=== PATIENT | female | born 1980 | race Asian ===

== ENCOUNTER 2016-12-06 18:45 | Emergency (ER) | payer BC ==
[2016-12-06 18:50] VITALS: BP 114/68
[2016-12-06] MEDS ORDERED: predniSONE TAB* 20 MG PO ONE (19:14)
[2016-12-06] MEDS ORDERED: diPHENhydraMINE PO* 50 MG PO ONE (19:14)
--- NOTE | 2016-12-06 20:32 | ED ---
Bebo Olmos Erika, scribed for Bello Collins MD on 12/06/16 at 1921 . Allergic Reaction/Systemic - HPI Summary HPI Summary: Patient is a 36-year-old female presenting to the ED with a CC of possible allergic reaction. Patient reports she started noticing pruritic, erythematous areas diffusely on her neck, chest, and extremities at 14:00 today, worsening more rapidly since arrival to the ED 30 minutes ago. She states onset was after eating lunch, and she reports she ate a new [place] flavoring agent that she has never had before. Patient has not taken any medication since then. She denies allergic reactions in the past. She denies SOB and nausea. Pt states she is breast-feeding. - History of Current Complaint Chief Complaint: EDAllergicReaction Time Seen by Provider: 12/06/16 19:09 Hx Obtained From: Patient, Family/Help Desk Assistant - Onset/Duration: Gradual Onset, Started hours ago, Still Present Timing: Constant Severity Initially: Mild Severity Currently: Moderate Pain Intensity: 0 Pain Scale Used: 0-10 Numeric Location: Diffuse Character: Pruritus, Hives Aggravating Factor(s): Nothing Alleviating Factor(s): Nothing Associated Signs And Symptoms: Negative: Difficulty Breathing, Nausea - Allergies/Home Medications Allergies/Adverse Reactions: Allergies Allergy/AdvReac Type Severity Reaction Status Date / Time No Known Allergies Allergy Verified 12/06/16 18:47 PMH/Surg Hx/FS Hx/Imm Hx Endocrine/Hematology History: Denies: Hx Diabetes Cardiovascular History: Denies: Hx Hypertension Infectious Disease History: No Infectious Disease History: Denies: Traveled Outside the [place] in Last 30 Days - Family History Known Family History: Negative: Cardiac Disease, Hypertension, Diabetes - Social History Occupation: Employed Full-time Lives: With Family Review of Systems Negative: Shortness Of Breath Negative: Nausea Positive: Rash - pruritic red areas All Other Systems Reviewed And Are Negative: Yes Physical Exam Triage Information Reviewed: Yes Vital Signs On Initial Exam: Initial Vitals Temp Pulse Resp BP Pulse Ox 97.8 F 72 18 114/68 100 12/06/16 18:48 12/06/16 18:48 12/06/16 18:48 12/06/16 18:48 12/06/16 18:48 Vital Signs Reviewed: Yes Appearance: Positive: Well-Appearing, No Pain Distress Skin: Positive: Warm, Other - patchy macular erythematous rash Head/Face: Positive: Normal Head/Face Inspection Neck: Positive: Supple Respiratory/Lung Sounds: Positive: Clear to Auscultation, Breath Sounds Present Cardiovascular: Positive: RRR Abdomen Description: Positive: Nontender, Soft Bowel Sounds: Positive: Present Musculoskeletal: Positive: Strength/ROM Intact Neurological: Positive: Alert, Oriented to Person Place, Time Psychiatric: Positive: Affect/Mood Appropriate Diagnostics - Vital Signs Vital Signs Temp Pulse Resp BP Pulse Ox 12/06/16 18:48 97.8 F 72 18 114/68 100 - Laboratory Result Diagrams: 12/06/16 20:55 12/06/16 20:55 Lab Statement: Any lab studies that have been ordered have been reviewed, and results considered in the medical decision making process. Re-Evaluation - Re-Evaluation First Eval Re-Evaluation Time: 20:44 Change: Unchanged Comment: Pt not improved with Benadryl and prednisone. Will order basic labs Second Eval Re-Evaluation Time: 21:23 Change: Improved Comment: Discussed lab results with patient. Will discharge at this time Allergic Reaction Course/Dx - Course Assessment/Plan: A 36 y/o F presents to the ED with a CC of possible allergic reaction. Patient has pruritic red areas on her neck, chest, extremities. She was given Benadryl and prednisone in the ED. At first, patient did not improve, so lab work was drawn, which was WNL. Pt clinically improved so will be discharged home with a prescription for Benadryl and prednisone and follow up from her PCP. - Diagnoses Provider Diagnoses: Allergic reaction Discharge - Discharge Plan Condition: Improved Disposition: HOME Prescriptions: diPHENhydraMINE PO* [Benadryl PO 25 MG TAB*] 25 mg PO Q6H #20 tab predniSONE TAB* [Deltasone TAB*] 40 mg PO DAILY #8 tab Patient Education Materials: General Allergic Reaction (ED) Referrals: [facility] [place] [facility] [Outside] Additional Instructions: Please follow up with your PCP. The documentation as recorded by the Bebo coyle Erika accurately reflects the service I personally performed and the decisions made by me, Bello Collins MD.
[2016-12-06 21:01] LABS: Hematocrit 41 % (35-47); Hemoglobin 13.9 g/dl (12.0-16.0); Mean Corpuscular HGB Conc 34 g/dl (31-36); Mean Corpuscular Hemoglobin 29 pg (27-31); Mean Corpuscular Volume 87 fL (80-97); Mean Platelet Volume 9 um3 (7.4-10.4); Red Blood Count 4.77 10^6/ul (4.0-5.4); Red Cell Distribution Width 14 % (10.5-15); White Blood Count 7.3 10^3/ul (3.5-10.8)
[2016-12-06 21:16] LABS: Albumin 4.3 g/dL (3.2-5.2); BUN/Creatinine Ratio 22.4 (8-20); Calcium 9.4 mg/dL (8.6-10.3); EGFR African American 129.6 (>60); EGFR Non-African American 100.8 (>60); Globulin 3.1 g/dL (2-4); Potassium 3.6 mmol/L (3.5-5.0); Total Bilirubin 0.5 mg/dL (0.2-1.0); Total Protein 7.4 g/dL (6.4-8.9)
[2016-12-06] MEDS ORDERED: diPHENhydraMINE PO* 25 MG PO ONE (21:30)
== END 2016-12-06 21:41 | disposition home or self-care (01) ==
LOC: ED 18:45
DX: T78.40XA Allergy, unspecified, initial encounter (principal); R21 Rash and other nonspecific skin eruption; X58.XXXA Exposure to other specified factors, initial encounter
CPT/HCPCS: 36415; 80053; 85025; 99282; A9270-GY; J7512